=== PATIENT | male | born 1950 | race Caucasian/White ===

== ENCOUNTER 2016-10-24 19:35 | Emergency (ER) | payer OTHER, SELFPAY ==
[2016-10-24 19:56] VITALS: BP 134/68; PULSE 66; RESP 18; TEMP 98.2; O2SAT 99
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
== END 2016-10-24 22:12 | disposition short-term general hospital (02) ==
LOC: H.ER 19:35
DX: M54.2 Cervicalgia (principal); V43.52XA Car driver injured in collision with other type car in traffic accident, initial encounter; Y92.410 Unspecified street and highway as the place of occurrence of the external cause